=== PATIENT | female | born 1980 | race Caucasian/White ===

== ENCOUNTER 2016-08-02 12:08 | Emergency (ER) | payer OTHER | END 2016-08-02 14:30 | disposition home or self-care (01) | LOC: ER 12:08 | DX: S50.01XA Contusion of right elbow, initial encounter (principal); W01.10XA Fall on same level from slipping, tripping and stumbling with subsequent striking against unspecified object, initial encounter; Y92.009 Unspecified place in unspecified non-institutional (private) residence as the place of occurrence of the external cause; F31.9 Bipolar disorder, unspecified; F17.210 Nicotine dependence, cigarettes, uncomplicated; Z79.899 Other long term (current) drug therapy; Z88.1 Allergy status to other antibiotic agents; Z88.2 Allergy status to sulfonamides; Z85.43 Personal history of malignant neoplasm of ovary; Z87.442 Personal history of urinary calculi; Z86.19 Personal history of other infectious and parasitic diseases ==

== ENCOUNTER 2016-09-01 17:40 | Emergency (ER) | payer OTHER | END 2016-09-01 19:35 | disposition home or self-care (01) | LOC: ER 17:40 | DX: R10.12 Left upper quadrant pain (principal); R11.2 Nausea with vomiting, unspecified; E87.6 Hypokalemia; R31.9 Hematuria, unspecified; F31.9 Bipolar disorder, unspecified; F17.210 Nicotine dependence, cigarettes, uncomplicated; Z90.710 Acquired absence of both cervix and uterus; Z90.49 Acquired absence of other specified parts of digestive tract; Z79.899 Other long term (current) drug therapy; Z88.1 Allergy status to other antibiotic agents; Z88.8 Allergy status to other drugs, medicaments and biological substances | CPT/HCPCS: 36415; 96361; 96374; 96375; 96376 ==

== ENCOUNTER 2016-09-05 17:13 | Emergency (ER) | payer OTHER | END 2016-09-05 19:00 | disposition home or self-care (01) | LOC: ER 17:13 | DX: N30.10 Interstitial cystitis (chronic) without hematuria (principal); F31.9 Bipolar disorder, unspecified; G43.909 Migraine, unspecified, not intractable, without status migrainosus; R10.9 Unspecified abdominal pain; G89.29 Other chronic pain; Z87.442 Personal history of urinary calculi; F17.210 Nicotine dependence, cigarettes, uncomplicated; Z79.899 Other long term (current) drug therapy; Z88.1 Allergy status to other antibiotic agents; Z88.8 Allergy status to other drugs, medicaments and biological substances | CPT/HCPCS: 36415; 80307; 96372; J2765 ==

== ENCOUNTER 2016-09-21 15:43 | Emergency (ER) | payer OTHER | END 2016-09-21 16:45 | disposition home or self-care (01) | LOC: ER 15:43 | DX: N30.90 Cystitis, unspecified without hematuria (principal); G43.909 Migraine, unspecified, not intractable, without status migrainosus; Z90.49 Acquired absence of other specified parts of digestive tract; Z90.710 Acquired absence of both cervix and uterus; Z87.442 Personal history of urinary calculi; Z88.1 Allergy status to other antibiotic agents; Z88.8 Allergy status to other drugs, medicaments and biological substances | CPT/HCPCS: 96372; J0696 ==

== ENCOUNTER 2016-10-28 19:50 | Emergency (ER) | payer OTHER | END 2016-10-28 23:17 | disposition home or self-care (01) | LOC: ER 19:50 | DX: N39.0 Urinary tract infection, site not specified (principal); F31.9 Bipolar disorder, unspecified; F17.210 Nicotine dependence, cigarettes, uncomplicated; Z90.49 Acquired absence of other specified parts of digestive tract; Z90.710 Acquired absence of both cervix and uterus; Z87.442 Personal history of urinary calculi; Z86.19 Personal history of other infectious and parasitic diseases; Z79.899 Other long term (current) drug therapy; Z88.1 Allergy status to other antibiotic agents | CPT/HCPCS: 36415; 80307; 96374; 96375; Q9963; Q9967 ==

== ENCOUNTER 2016-10-31 23:14 | Emergency (ER) | payer OTHER | END 2016-11-01 01:25 | disposition home or self-care (01) | LOC: ER 23:14 | DX: N30.20 Other chronic cystitis without hematuria (principal); L03.116 Cellulitis of left lower limb; G43.909 Migraine, unspecified, not intractable, without status migrainosus; F31.9 Bipolar disorder, unspecified; M41.9 Scoliosis, unspecified; F17.210 Nicotine dependence, cigarettes, uncomplicated; Z90.710 Acquired absence of both cervix and uterus; Z90.49 Acquired absence of other specified parts of digestive tract; Z85.41 Personal history of malignant neoplasm of cervix uteri; Z85.43 Personal history of malignant neoplasm of ovary; Z79.899 Other long term (current) drug therapy; Z88.1 Allergy status to other antibiotic agents | CPT/HCPCS: 96372; J0696 ==

== ENCOUNTER 2016-11-05 15:45 | Emergency (ER) | payer OTHER | END 2016-11-05 18:12 | disposition home or self-care (01) | LOC: ER 15:45 | DX: N30.10 Interstitial cystitis (chronic) without hematuria (principal); F31.9 Bipolar disorder, unspecified; F17.210 Nicotine dependence, cigarettes, uncomplicated; Z90.710 Acquired absence of both cervix and uterus; Z90.49 Acquired absence of other specified parts of digestive tract; Z79.899 Other long term (current) drug therapy; Z88.1 Allergy status to other antibiotic agents; Z85.41 Personal history of malignant neoplasm of cervix uteri; Z85.43 Personal history of malignant neoplasm of ovary ==